=== PATIENT | female | born 1995 | race Caucasian/White ===

== ENCOUNTER 2017-01-03 15:23 | Inpatient (IN) | payer BC, OTHER ==
[~2017-01-03] VITALS: Ht 157.5 cm; Wt 67.6 kg
[~2017-01-03 15:23] MED LIST: ACYC400T PO; ARIP15TA3 PO; BUPR-96 PO; DICY20TA28 PO; Gabapentin PO; HYDR-3895 PO; TRAZ-147 PO
--- NOTE | 2017-01-03 17:22 | NUR ---
PRE ADMISSION 21 year old female, alert and oriented x4, appears intoxicated. Patient reports she is here to detox off of heroin, Xanax, methamphetamine, and cocaine, as per patient she relapsed two weeks ago. Reports allergies to sulfa. bp: 124/90 heart rate: 96 t: 98.2 o2 sat: 98% room air. Patient was educated regarding unit policies with good verbal understanding.
--- NOTE | 2017-01-03 17:32 | NUR ---
ADMISSION Admitted a 21 year old female from [facility], patient arrived to [facility] at 1732, patient was oriented to unit and to room, educated regarding call light use with good verbal understanding. Body assessment was completed, noted with multiple scars on body and track graves on BUE. Patient skin is intact, no bruising, redness or discoloration noted on skin. Patients body search completed by female CLOTH PRINTING INSPECTOR, no contraband found. Patient is alert and oriented x4. Allergies to sulfa. Patient reports she does not have a primary care physician, reports currently is homeless and unemployed. As per patient she has been to approximately 15 treatment centers, cannot recall all the names, per patient most recently was at [facility] "a few weeks ago" Since then reports she relapsed two weeks ago. Reports 1. heroin 0.5 gram IV daily for two weeks, last used 0.2gram IV 01/03/2017 approximately 1300, reports has been using on/off since age of 16. 2. Xanax 6mg daily by mouth for two weeks, last used 4mg PO 01/03/2017 approximately 1330, reports has been using on/off since age of 16. 3. methamphetamine 0.5 grams daily IV for two weeks, last used unk amount 01/03/2017 approximately 1400, reports has been using since age of 20. 4. cocaine 0.5 grams daily snorted for two weeks, last used unknown amount 01/02/2017 approximately at 2300, reports has been using on/off since age of 15. Patient currently denies taking any home medications. Reports past medical history of: hep c+, scoliosis surgery in 2006, anxiety and depression Dx: 2010 and herpes Dx: 2013. Patient reports has had one episode of seizure a "couple of years ago" due to benzodiazepine withdrawal. patient reports family substance abuse of: "father is an alcoholic" Patients respirations are even and unlabored, pupils are equal and reactive to light, 2mm. Abdomen is soft and non distended. no NVD. Patient presenting with: mild anxiety and heart rate of 96 with admitting cow score of: 2 and ciwa score of: 2. Dr. Carrasquillo was notified of new admission, per Md will input admitting orders, psychiatrist was notified of new admission. Will continue to monitor closely. Admission urine drug screen completed. fall and seizure precautions observed. safety measures in place.
[2017-01-03 17:57] LABS: *URINE HCG, QUAL NEGATIVE (NEGATIVE)
[2017-01-03 17:58] LABS: *AMPHETAMINE, URINE POSITIVE (NEGATIVE); *BARBITURATE, URINE NEGATIVE (NEGATIVE); *CANNABINOID, URINE NEGATIVE (NEGATIVE); *COCCAINE, URINE POSITIVE (NEGATIVE); *OPIATE, URINE POSITIVE (NEGATIVE); *PHENCYCLIDINE SCREEN,URINE NEGATIVE (NEGATIVE)
[2017-01-03] MEDS ORDERED: MAGNESIUM HYDROXIDE 30 ML LIQUID UDC PO PRN (18:00)
[2017-01-03] MEDS ORDERED: ONDANSETRON ODT 4 MG TAB.RAPDIS SL PRN (18:00)
[2017-01-03] MEDS ORDERED: LORAZEPAM 1 MG TABLET PO PRN ×2 (18:00)
[2017-01-03] MEDS ORDERED: MAG HYDROX/AL HYDROX/SIMETH 30 ML LIQUID UDC PO PRN (18:00)
[2017-01-03] MEDS ORDERED: ONDANSETRON 4 MG/2 ML VIAL IM PRN (18:00)
[2017-01-03] MEDS ORDERED: IBUPROFEN 600 MG TABLET PO PRN (18:00)
[2017-01-03] MEDS ORDERED: ACETAMINOPHEN 325 MG TABLET PO PRN (18:00)
[2017-01-03] MEDS ORDERED: diphenhydrAMINE 50 MG CAPSULE PO PRN (18:00)
[2017-01-03] MEDS ORDERED: METHOCARBAMOL 750 MG TABLET PO PRN (18:00)
[2017-01-03] MEDS ORDERED: LOPERAMIDE HCL 2 MG CAPSULE PO PRN ×2 (18:00)
[2017-01-03] MEDS ORDERED: CLONIDINE HCL 0.1 MG TABLET PO PRN (18:00)
[2017-01-03] MEDS ORDERED: LORAZEPAM 2 MG/1 ML VIAL IM PRN (18:00)
[2017-01-03] MEDS ORDERED: MIRALAX 17 GM POWD.PACK PO PRN (18:00)
[2017-01-03] MEDS ORDERED: BUPRENORPHINE HCL 2 MG TAB.SUBL SL PRN (18:00)
[2017-01-03] MEDS ORDERED: DICYCLOMINE HCL 20 MG TABLET PO PRN (18:00)
[2017-01-03 18:27] VITALS: BP 124/90
[2017-01-03 19:26] LABS: BASOPHILS # (AUTO) 0.1 K/uL (0.0-8.0); BASOPHILS % (AUTO) 0.8 % (0.0-2.0); EOSINOPHILS # (AUTO) 0.2 K/uL (0.0-0.7); EOSINOPHILS % (AUTO) 2.3 % (0.0-7.0); HEMATOCRIT 37.3 % (37-47); HEMOGLOBIN 12.5 G/DL (12.0-16.0); LYMPHOCYTES # (AUTO) 3.4 K/UL (0.8-4.8); LYMPHOCYTES % (AUTO) 39.2 % (20.5-51.5); MEAN CORPUSCULAR HEMOGLOBIN 27.9 UUG (27.0-31.0); MEAN CORPUSCULAR HGB CONC 34 g/dL (32.0-37.0); MEAN CORPUSCULAR VOLUME 83.3 FL (81.0-99.0); MONOCYTES % (AUTO) 11.6 % (0.0-11.0); NEUTROPHILS # (AUTO) 4.1 K/UL (1.8-8.9); NEUTROPHILS % (AUTO) 46.1 % (38.5-71.5); PLATELET COUNT (AUTO) 241 K/UL (150-450); RED BLOOD CELL COUNT(AUTO) 4.48 MIL/UL (4.2-5.4); WHITE BLOOD COUNT (AUTO) 8.8 K/UL (4.0-11.2)
[2017-01-03 19:34] LABS: ETHANOL < 3 MG/DL (0-0)
[2017-01-03 19:38] LABS: ALANINE AMINOTRANSFERASE 95 U/L (14-59); ALKALINE PHOSPHATASE 53 U/L (50-136); ASPARTATE AMINOTRANSFERASE 63 U/L (15-37); BILIRUBIN,TOTAL 0.9 mg/dL (0.2-1.0); CARBON DIOXIDE 24 mmol/L (21-32); CHLORIDE 99 mmol/L (98-107); GLUCOSE 111 mg/dL (74-106); POTASSIUM 2.9 mmol/L (3.5-5.1); TOTAL PROTEIN, SERUM 7.5 g/dL (6.4-8.2); UREA NITROGEN, BLOOD 12 mg/dL (7-18)
[2017-01-03 20:00] VITALS: BP 127/92
--- NOTE | 2017-01-03 20:00 | NUR ---
START OF SHIFT NOTE E PATIENT IN THE ROOM. ALERT AND ORIENTED X 4. PATIENT STATES SHE'S TIRED AND C/O HEADACHE 10/20. NO N/V. RECEIVED REPORT FROM DAY SHIFT NURSE. PATIENT IS A 21 YEAR OLD FEMALE, NEWLY ADMITTED FOR OPIATE/BENZO DEPENDENCE. PATIENT IS ON PRN SUBUTEX AND PRN ATIVAN. UPON ADMISSION, PATIENT STATES SHE'S BEEN USING FOR 2 WEEKS. PATIENT'S DRUG OF CHOICE ARE HEROIN 0.5 GRAMS IV ,XANAX 6 MG ORALLY, METHAMPHETAMINE 0.5 GRAM IV AND COCAINE 0.5 GRAM SNORTED/IV. PATIENT REPORTED PMH OF HEP C +, ANXIETY, DEPRESSION, ANEMIA, HERPES AND SEIZURE X 1 D/T W/D. PATIENT IS ON FALL /SEIZURE PRECAUTION. SKIN INTACT. PATIENT DID NOT REQUIRE ANY PRN MEDICATION . LAST COWS 2 AND CIWA 1. SAFETY MEASURES IN PLACE. CALL LIGHT IN REACH. WILL CONTINUE TO MONITOR.
[2017-01-03] MEDS ORDERED: POTASSIUM CHLORIDE 20 MEQ TAB.PRT.SR PO ONE (20:15)
[2017-01-03] MEDS: GABAPENTIN 300 MG CAPSULE PO SCH (20:31)
[2017-01-03] MEDS: ACYCLOVIR 400 MG TABLET PO SCH (20:31)
--- NOTE | 2017-01-03 20:31 | NUR ---
PRN MOTRIN ADMINISTRATION PATIENT C/O HEADACHE 10/20. PRN MOTRIN GIVEN. WILL MONITOR FOR EFFECTIVENESS
--- NOTE | 2017-01-03 21:31 | NUR ---
PRN MOTRIN RE-ASSESSMENT PATIENT STATES MOTRIN HELPFUL. PAIN LEVEL 2/10 AT THIS TIME, TOLERABLE. WILL CONTINUE TO MONITOR.
[2017-01-04] VITALS: BP 119/86
[2017-01-04 04:00] VITALS: BP 119/84
--- NOTE | 2017-01-04 07:11 | NUR ---
END OF SHIFT NOTE PATIENT REMAIN ALERT AND ORIENTED X 4. PATIENT STATES SHE'S TIRED AND C/O HEADACHE 10/20, NO N/V BEGINNING OF SHIFT. PATIENT IS A 21 YEAR OLD FEMALE, NEWLY ADMITTED FOR OPIATE/BENZO DEPENDENCE. PATIENT IS ON PRN SUBUTEX AND PRN ATIVAN. UPON ADMISSION, PATIENT STATES SHE'S BEEN USING FOR 2 WEEKS. PATIENT'S DRUG OF CHOICE ARE HEROIN 0.5 GRAMS IV ,XANAX 6 MG ORALLY, METHAMPHETAMINE 0.5 GRAM IV AND COCAINE 0.5 GRAM SNORTED/IV. PATIENT REPORTED PMH OF HEP C +, ANXIETY, DEPRESSION, ANEMIA, HERPES AND SEIZURE X 1 D/T W/D. PATIENT IS ON FALL /SEIZURE PRECAUTION. SKIN INTACT.PATIENT WAS GIVEN PRN MOTRIN FOR HEADACHE . PATIENT COMPLIANT WITH MEDICATIONS AND TREATMENT PLAN. SAFETY MEASURES IN PLACE. CALL LIGHT IN REACH. WILL CONTINUE TO MONITOR. SLEPT 5 HOURS. FLUID INTAKE 1,656 ML. VOIDED X 3. NO BM . LAST COWS 1 AND CIWA 1 .
--- NOTE | 2017-01-04 07:32 | NUR ---
BEGINNING OF SHIFT Patient endorsement report received from shift mgr nurse, all pertinent information discussed. Patient is 21 year old Female, allergic to sulfa. Admitted on 01/03/2017. Admitting Dx: opiate/ BZO dependence. currently with no ongoing taper and is currently with ongoing PRN ativan and PRN subutex as needed for s/sx of withdrawal. Patient slept for 5 hours as per shift mgr. Also with last cow score of: 1 and ciwa score of: 1. During shift mgr patient received PRN: motrin as per shift mgr medication was effective. Received patient in bed with eyes closed, respirations even and unlabored. responsive to verbal stimuli. Educated regarding plan of care for the day and medication regimen with good verbal understanding. Safety measures in place. call light kept with in reach, fall and seizure precautions observed. Will continue to monitor closely.
[2017-01-04 08:07] VITALS: BP 116/80
[2017-01-04] MEDS ORDERED: TUBERCULIN,PURIF.PROT.DERIV. 5 TU/0.1 ML TEST ID ONE (09:00)
[2017-01-04] MEDS: MULTIVITAMINS,THERAPEUTIC TABLET PO SCH (09:03)
[2017-01-04] MEDS: ACYCLOVIR 400 MG TABLET PO SCH ×2 (09:03→21:46)
[2017-01-04] MEDS: GABAPENTIN 300 MG CAPSULE PO SCH ×3 (09:03→21:46)
--- NOTE | 2017-01-04 09:03 | NUR ---
PRN ATIVAN Patient presenting with: tremors that can be felt but not seen, barely sweating, anxiety, mild head fullness, c/o chills, mild bone and joint aches, and moist eyes with cow score of: 6 and ciwa score of: 7. As per MD order Ativan 1 mg PO was administered as ordered, will monitor effectiveness of medication. vital signs WNL. safety measures in place. will continue to monitor.
--- NOTE | 2017-01-04 10:00 | NUR ---
MD COMMUNICATION Patients BLE noted with non pitting edema 1+. Notified Dr. Carrasquillo with no new orders, will continue to monitor closely. patient encouraged to keep BLE elevated with good verbal understanding, per patient this occurs to her during detox. vs WNL. afebrile, no c/o pain/discomfort to BLE. Patient reported that she thinks she might have a UTI, Dr. Carrasquillo is aware with new orders for UA, will collect specimen and continue to monitor, patient encouraged to increase PO fluid intake as tolerated, no hematuria noted. will continue to monitor.
--- NOTE | 2017-01-04 10:03 | NUR ---
PRN ASSESSMENT Medication was effective one hour post adminstration: ciwa score decreased to: 5, will continue to monitor, closely. safety measures in place.
[2017-01-04 13:08] VITALS: BP 119/80
[2017-01-04] MEDS: LORAZEPAM 1 MG TABLET PO SCH ×3 (13:28→21:46)
[2017-01-04] MEDS: BUPRENORPHINE HCL 2 MG TAB.SUBL SL SCH ×3 (13:28→21:47)
[2017-01-04 14:41] LABS: *BILIRUBIN,URIN NEGATIVE (NEGATIVE); *BLOOD, URINE Trace-intact (NEGATIVE); *CLARITY,URINE CLOUDY (CLEAR); *COLOR,URINE YELLOW (YELLOW); *KETONES,URINE NEGATIVE (NEGATIVE); *PROTEIN,URINE NEGATIVE (NEGATIVE); *UROBILINOGEN,URINE 0.2 E.U./dl (NORMAL); LEUKOCYTE ESTERASE ,URINE 3+ (NEGATIVE); NITRITE, URINE POSITIVE (NEGATIVE); PH,URINE 6.5 (5.0-8.0); UGLUCOSE NEGATIVE (NEGATIVE)
[2017-01-04 15:07] LABS: BACTERIA,URINE MANY /HPF (NONE SEEN); SQUAMOUS EPITHELIAL CELL,UR MODERATE /HPF (NONE SEEN); WBC,URINE 20-50 /HPF (0-3)
[2017-01-04 16:41] VITALS: BP 112/78
[2017-01-04] MEDS: NITROFURANTOIN/NITROFURAN MAC 100 MG CAPSULE PO SCH ×2 (16:41→21:46)
[2017-01-04] MEDS: LACTOBACILLUS RHAMNOSUS GG 1 EACH CAPSULE PO SCH ×2 (16:41→21:46)
[2017-01-04] MEDS ORDERED: TRAZODONE 100 MG TABLET PO PRN (16:45)
[2017-01-04] MEDS ORDERED: HYDROXYZINE PAMOATE 25 MG CAPSULE PO PRN (16:45)
--- NOTE | 2017-01-04 19:06 | NUR ---
END OF SHIFT Patient alert and oriented x4, vital signs stable during shift. Patient compliant with therapeutic plan of care during shift. Patient started on 5 day Subutex taper and started 5 day Ativan taper as ordered, first dose was administered at 1300 as ordered well tolerated, no ASE noted. during shift patient was started on Macrobid as ordered for UTI, medications was administered ordered, well tolerated, no ASE noted. patient encouraged adequate PO fluid intake as tolerated, Afebrile during shift. 0900 assessment patient presented with: tremors that can be felt but not seen, barely sweating, anxiety, mild heeafullness, c/o chills, mild bone and joint aches, and moist eyes with ciwa score of: 7 and cow score of: 6; 1300 assessment patient presented with: heart rate of 107, c/o chills, mild bone and joint aches, moist eyes, tremors that can be felt but not seen, irritable, and anxiety and very mild head fullness with cow score of: 8 and ciwa score of: 7; 1700 assessment patient presented with: heart rate of 95,c/o chills, mild bone and joint aches, moist eyes, tremors that can be felt but not seen, irritable, and anxiety and very mild head fullness with cow score of: 7 and ciwa score of: 7 During shift administered PRN: Ativan as ordered at 0903 for s/sx of withdrawal, mediation was effective one hour post administration. Patient encouraged to attend group/therapy sessions to learn new coping skills to prevent relapse, denies SI/HI. Patient compliant with plan of care during shift. Safety measures in place. call light kept with in reach. Patient endorsement report given to material handler 2nd shift nurse, all pertinent information discussed. safety measures in place. will continue to monitor.
--- NOTE | 2017-01-04 19:07 | NUR ---
Start of shift note Received report from day shift nurse. Pt is a 21 yo female, A+Ox4, presenting to [facility] for Opiate/Benzo/Meth dependence. Pt has Allergies tyo Sulfa, is on Full Code status, and on Regular diet. Pt is on Fall and Seizure precautions. Pt has HX of Hep C, Anxiety, Depression, Anemia, Seizure, and UTI. Pt is on 5 day Ativan and 5 day Subutex taper, tolerated well. No s/s of distress noted at this time. Respirations even and unlabored. Will continue to monitor.
[2017-01-04 20:06] VITALS: BP 127/86
[2017-01-05 00:16] VITALS: BP 109/72
[2017-01-05 04:30] VITALS: BP 110/74
[2017-01-05 06:08] LABS: HEPATITIS B SURFACE AG Negative (Negative)
--- NOTE | 2017-01-05 07:00 | NUR ---
End of shift note Pt is a 21 yo female, A+Ox4, presenting to [facility] for Opiate/Benzo/Meth dependence. Pt has Allergies to Sulfa, is on Full Code status, and on Regular diet. Pt is on Fall and Seizure precautions. Pt has HX of Hep C, Anxiety, Depression, Anemia, Seizure, and UTI. Pt is on 5 day Ativan and 5 day Subutex taper, tolerated well. Pt slept for a total of 9 HRS. Last CIWA: 2 and Last COWS: 2 @0400. No s/s of distress noted at this time. Respirations even and unlabored. Will endorse to day shift nurse.
--- NOTE | 2017-01-05 07:58 | NUR ---
START OF SHIFT NOTE Received report from night nurse, 21 year old Female, allergic to sulfa. Pt admitted for Opiate/ BENZO dependence. Pt cont with 5 days Ativan taper and 5 days Subutex taper tolerating well. Per endorsement pt's last CIWA-2, COWS-2, no PRN were administered, Slept for 9 hours. Received patient in bed alert awake oriented x4, respirations even and unlabored. responsive to verbal stimuli. Educated regarding plan of care for the day and medication regimen with good verbal understanding. Safety measures in place. call light kept with in reach,On fall and seizure precautions. Will cont to monitor.
[2017-01-05 08:00] VITALS: BP 116/84
[2017-01-05] MEDS: LORAZEPAM 1 MG TABLET PO SCH ×3 (08:19→20:26)
[2017-01-05] MEDS: GABAPENTIN 300 MG CAPSULE PO SCH ×4 (08:19→20:28)
[2017-01-05] MEDS: LACTOBACILLUS RHAMNOSUS GG 1 EACH CAPSULE PO SCH ×2 (08:19→20:28)
[2017-01-05] MEDS: MULTIVITAMINS,THERAPEUTIC TABLET PO SCH (08:19)
[2017-01-05] MEDS: BUPRENORPHINE HCL 2 MG TAB.SUBL SL SCH ×3 (08:19→20:30)
[2017-01-05] MEDS: ACYCLOVIR 400 MG TABLET PO SCH ×2 (08:19→20:26)
[2017-01-05] MEDS: NITROFURANTOIN/NITROFURAN MAC 100 MG CAPSULE PO SCH ×2 (08:19→20:28)
[2017-01-05 12:00] VITALS: BP 121/78
[2017-01-05 13:17] LABS: CREATININE 0.8 mg/dL (0.6-1.3); MAGNESIUM 1.6 mg/dL (1.8-2.4); POTASSIUM 3.7 mmol/L (3.5-5.1)
[2017-01-05] MEDS: BACLOFEN 10 MG TABLET PO SCH ×2 (15:09→20:26)
[2017-01-05 16:00] VITALS: BP 113/73
[2017-01-05] MEDS ORDERED: MAGNESIUM OXIDE 400 MG TABLET PO ONE (17:00)
--- NOTE | 2017-01-05 19:11 | NUR ---
END OF SHIFT NOTE Gave report to night nurse, 21 year old Female, allergic to sulfa. Pt admitted for Opiate/ BENZO dependence. Pt cont with 5 days Ativan taper and 5 days Subutex taper tolerating well. Pt cont with Po antibiotic for UTI no s/s of ASE noted. Pt did not receive any PRN during shift. Pt noted with low magnesium level replaced with Mag-OX 800 mg as ordered. Encourage Po fluids as ordered. Patient encouraged to attend group/therapy sessions to learn new coping skills to prevent relapse, denies SI/HI. Patient compliant with plan of care during shift. Safety measures in place. call light kept with in reach. Patient endorsement report given to warp knit operator nurse. Will cont to monitor.
[2017-01-05 20:00] VITALS: BP 128/84
--- NOTE | 2017-01-05 20:00 | NUR ---
START OF SHIFT NOTE Pt is a 21 y/o female admitted for Heroin, Xanax, Meth, and Cocaine dependence and use. Pt has an allergy to Sulfa and reported a PMH of Hep C, anxiety, depression, anemia, herpes, and seizure x 1 d/t w/d. Per day shift nurse pt was placed on a 5 day Subutex taper and is tolerating medication well with no s/e or a/r reported. Pt didn't receive any PRNS during the day shift. Last COW: 4 CIWA: 4 (1600). At this time pt is in her room. Pt's skin is dry and intact. No tremors noted. Pt denies having any pain/discomfort. Pt was encouraged to notify staff of any changes in condition or of any concerns. Pt verbalized an understanding. All safety measures in place. Will continue to monitor.
--- NOTE | 2017-01-06 | NUR ---
VITALS REFUSED/COW AND CIWA DEFERRED Pt refused to have vitals taken at this time. Pt was encouraged x 3 with risks and benefits explained, but the pt still declined. COW and CIWA assessment deferred until pt is awake. All safety measures in place. Will continue to monitor. Addendum: 01/06/17 at 0628 by TOMAS BEYER LVN Amended: Links added.
--- NOTE | 2017-01-06 04:00 | NUR ---
VITALS REFUSED / COW AND CIWA DEFERRED Pt refused to have vitals taken at this time. Pt was encouraged x 3 with risks and benefits explained, but the pt still declined. COW and CIWA assessment deferred until pt is awake. All safety measures in place. Will continue to monitor. Addendum: 01/06/17 at 0628 by TOMAS BEYER LVN Amended: Links added.
--- NOTE | 2017-01-06 06:48 | NUR ---
END OF SHIFT NOTE Pt is a 21 y/o female admitted for Heroin, Xanax, Meth, and Cocaine dependence and use. Pt has an allergy to Sulfa and reported a PMH of Hep C, anxiety, depression, anemia, herpes, and seizure x 1 d/t w/d. Pt continues on a 5 day Subutex taper and is tolerating medication well with no s/e or a/r reported. Pt didn't receive any PRNS during the shift. Last COW: 2 CIWA: 0 (1999). Pt slept for a total of 8 hours. All safety measures in place. No new changes. Will endorse to the oncoming nurse.
--- NOTE | 2017-01-06 07:00 | NUR ---
Start of Shift Report from the night nurse: pt is 21 y/o female here for Opiates r/t Heroin 0.5g daily, Benzo r/t Xanax 6mg daily, methamphetamine 0.5g daily and Cocaine 0.5g daily; 5 day Subutex and 5 day Ativan tapers ordered. Pt is a full code, regular diet, allergic to Sulfa, fall and seizure precautions ordered. New Dx of UTi with 2 PO Atbx ordered. HHx: Hep C+, Anxiety, depression, anemia , HSV and seizure r/t w/d, relapse at 15 different tx centers. V/S stable. Skin is intact. No new abnormal labs endorsed to me. No PRN medications given last night. Last COWS 2 CIWA 0 Pt is asleep in room. Will cont. to monitor the pt.
[2017-01-06 08:00] VITALS: BP 127/80
[2017-01-06] MEDS ORDERED: BUPRENORPHINE HCL 2 MG TAB.SUBL SL SCH (09:00)
[2017-01-06] MEDS: ACYCLOVIR 400 MG TABLET PO SCH ×2 (10:33→20:56)
[2017-01-06] MEDS: LORAZEPAM 1 MG TABLET PO SCH ×4 (10:33→20:51)
[2017-01-06] MEDS: GABAPENTIN 300 MG CAPSULE PO SCH ×3 (10:33→20:52)
[2017-01-06] MEDS: BACLOFEN 10 MG TABLET PO SCH ×3 (10:33→20:52)
[2017-01-06] MEDS: MULTIVITAMINS,THERAPEUTIC TABLET PO SCH (10:33)
[2017-01-06] MEDS: NITROFURANTOIN/NITROFURAN MAC 100 MG CAPSULE PO SCH ×2 (10:33→20:52)
[2017-01-06] MEDS: LACTOBACILLUS RHAMNOSUS GG 1 EACH CAPSULE PO SCH ×2 (10:34→20:53)
[2017-01-06 12:00] VITALS: BP 106/75
--- NOTE | 2017-01-06 14:50 | NUR ---
Medication Non-Administration Ativan Pt is asleep in room since 1245pm after lunch so I HELD Ativan 1mg PO due at 1300H. Will cont. to monitor the pt.
[2017-01-06 16:00] VITALS: BP 133/92
[2017-01-06] MEDS: BUPRENORPHINE HCL 2 MG TAB.SUBL SL SCH ×2 (16:25→20:54)
--- NOTE | 2017-01-06 19:35 | NUR ---
End of Shift Report to the night nurse: pt is 21 y/o female here for Opiates r/t Heroin 0.5g daily, Benzo r/t Xanax 6mg daily, methamphetamine 0.5g daily and Cocaine 0.5g daily; 5 day Subutex and 5 day Ativan tapers ordered & pt missed the 1300H dose ordered since she was asleep. Pt is a full code, regular diet, allergic to Sulfa, fall and seizure precautions ordered. New Dx of UTi with 2 PO Atbx ordered. HHx: Hep C+, Anxiety, depression, anemia , HSV and seizure r/t w/d, relapse at 15 different tx centers. V/S stable. Skin is intact. No Hallucinations delusions or suicidal ideations noted. No new abnormal labs endorsed to me. No PRN medications given during my shift. Pt attended group therapy and activities. Last COWS 1 CIWA 2
--- NOTE | 2017-01-06 19:50 | NUR ---
START OF SHIFT NOTE Pt is a 21 y/o female admitted for Heroin, Xanax, Meth, and Cocaine dependence and use. Pt has an allergy to Sulfa and reported a PMH of Hep C, anxiety, depression, anemia, herpes, and seizure x 1 d/t w/d. Per day shift nurse pt continues on a 5 day Subutex taper and is tolerating medication well with no s/e or a/r reported. Pt didn't receive any PRNS during the day shift. Last COW: 1 CIWA: 2(1600). At this time pt is in her room. Pt's skin is dry and intact. No tremors noted. Pt denies having any pain/discomfort. Pt was encouraged to notify staff of any changes in condition or of any concerns. Pt verbalized an understanding. All safety measures in place. Will continue to monitor.
[2017-01-06 20:00] VITALS: BP 125/88
[2017-01-06] MEDS: DICYCLOMINE HCL 20 MG TABLET PO SCH (20:51)
--- NOTE | 2017-01-07 | NUR ---
VITALS REFUSED / COW AND CIWA DEFERRED Pt refused to have vitals taken at this time. Pt was encouraged x 3 with risks and benefits explained, but the pt still declined. COW and CIWA assessment deferred until pt is awake. All safety measures in place. Will continue to monitor. Addendum: 01/07/17 at 0053 by TOMAS BEYER LVN Amended: Links added.
--- NOTE | 2017-01-07 04:00 | NUR ---
VITALS REFUSED/ COW AND CIWA DEFERRED Pt refused to have vitals taken at this time. Pt was encouraged x 3 with risks and benefits explained, but the pt still declined. COW and CIWA assessment deferred until pt is awake. All safety measures in place. Will continue to monitor. Addendum: 01/07/17 at 0417 by TOMAS BEYER LVN Amended: Links added.
--- NOTE | 2017-01-07 07:07 | NUR ---
END OF SHIFT NOTE Pt is a 21 y/o female admitted for Heroin, Xanax, Meth, and Cocaine dependence and use. Pt has an allergy to Sulfa and reported a PMH of Hep C, anxiety, depression, anemia, herpes, and seizure x 1 d/t w/d. Pt continues on a 5 day Subutex taper and is tolerating medication well with no s/e or a/r reported. Pt didn't receive any PRNS during the shift. Last COW: 1 CIWA: 2 (1999). Pt slept for a total of 7 hours. All safety measures in place. No new changes. Will endorse to the oncoming nurse.
--- NOTE | 2017-01-07 07:30 | NUR ---
START OF SHIFT Pt 21 y/o female admitted for opiate/ bzo dependence. Pt received in room on bed with eyes closed resting, but easily arousable to name. Pt alert and oriented to name, place, and time. Perrla. Skin warm and dry to touch. Respirations even and unlabored. It was reported that pt slept for 7 hours last night. Bed on lowest position with side rails x2 up for safety. Call light within reach. No distress noted at this time.
[2017-01-07 08:47] VITALS: BP 109/85
[2017-01-07] MEDS: GABAPENTIN 300 MG CAPSULE PO SCH ×3 (09:36→22:06)
[2017-01-07] MEDS: MULTIVITAMINS,THERAPEUTIC TABLET PO SCH (09:36)
[2017-01-07] MEDS: BACLOFEN 10 MG TABLET PO SCH ×3 (09:36→22:04)
[2017-01-07] MEDS: BUPRENORPHINE HCL 2 MG TAB.SUBL SL SCH ×3 (09:36→22:06)
[2017-01-07] MEDS: ACYCLOVIR 400 MG TABLET PO SCH ×2 (09:36→22:05)
[2017-01-07] MEDS: DICYCLOMINE HCL 20 MG TABLET PO SCH ×3 (09:36→22:05)
[2017-01-07] MEDS: NITROFURANTOIN/NITROFURAN MAC 100 MG CAPSULE PO SCH ×2 (09:36→22:05)
[2017-01-07] MEDS: LORAZEPAM 1 MG TABLET PO SCH ×3 (09:36→22:00)
--- NOTE | 2017-01-07 09:50 | NUR ---
CULTURRELLE Culturrelle not available. Pharmacy made aware and awaiting for medication.
[2017-01-07] MEDS: LACTOBACILLUS RHAMNOSUS GG 1 EACH CAPSULE PO SCH ×2 (11:19→22:05)
[2017-01-07 13:00] VITALS: BP 129/86
[2017-01-07] MEDS ORDERED: CLONIDINE HCL 0.1 MG TABLET PO ONE (15:00)
[2017-01-07 17:38] VITALS: BP 102/62
--- NOTE | 2017-01-07 18:25 | NUR ---
END OF SHIFT Pt 21 y/o female admitted for opiate/ bzo dependence. Pt alert and orient to name, place, and time. Pt alert and oriented to name, place, and time. Perrla. Skin warm and slightly moist to touch. Respirations even and unlabored. Pt observed mostly in dining room throughout the day. Pt medication compliant and tolerated well. No ASE noted. Bed on lowest position with side rails x2 up for safety. Call light within reach. No distress noted a this time.
--- NOTE | 2017-01-07 19:15 | NUR ---
START OF SHIFT NOTE Pt is 21 y/o female here for Opiates, Benzo , methamphetamine , , Cocaine , pt. placed on 5 day Subutex and 5 day Ativan tapers on 01/04/2017. Pt is a full code, regular diet, allergic to Sulfa, fall and seizure precautions ordered. New Dx of UTi with 2 PO Atbx ordered. HHx: Hep C+, Anxiety, depression, anemia , HSV and seizure r/t w/d, relapse at 15 different tx centers. V/S stable. Skin is intact. No new abnormal labs endorsed to me. Pt is asleep in room. Safety measures in place : bed on lowest position with side rails x2 up for safety, call light within reach. Will continue to monitor closely and offer help.
[2017-01-07 20:00] VITALS: BP 122/80
[2017-01-07] MEDS: CLONIDINE HCL 0.1 MG TABLET PO SCH (22:05)
--- NOTE | 2017-01-08 06:39 | NUR ---
END OF SHIFT NOTE Pt is 21 y/o female here for Opiates, Benzo , methamphetamine , , Cocaine , pt. placed on 5 day Subutex and 5 day Ativan tapers on 01/04/2017. Pt is a full code, regular diet, allergic to Sulfa, fall and seizure precautions ordered. New Dx of UTi with 2 PO Atbx ordered. HHx: Hep C+, Anxiety, depression, anemia , HSV and seizure r/t w/d, relapse at 15 different tx centers. V/S stable. Skin is intact. No new abnormal labs endorsed to me. Pt is asleep in room. Pt remains compliant with the treatment plan. No PRNs were given during my shift. V/S remain WNL. RR=16, even and unlabored, lungs clear upon auscultation, abdomen soft and non- distended. Pt denies nausea, vomiting and diarrhea. LAST CIWA=2 ,COWS=2 at 0400 , INTAKE= 2210 ml, voided x3 , slept 8 [address] measures in place : bed on lowest position with side rails x2 up for safety, call light within reach. Will continue to monitor closely and offer help.
--- NOTE | 2017-01-08 07:30 | NUR ---
START OF SHIFT Pt 21 y/o female admitted for opiate/ bzo dependence. Pt received in room on bed with eyes closed resting, but easily arousable to name. Pt alert and oriented to name, place, and time. Perrla. Skin warm and dry to touch. Respirations even and unlabored. Bilateral hand tremors noted slightly. It was reported that pt slept for 8 hours last night. Bed on lowest position with side rails x2 up for safety. Call light within reach. No distress noted at this time.
[2017-01-08 08:00] VITALS: BP 123/65
[2017-01-08] MEDS: NITROFURANTOIN/NITROFURAN MAC 100 MG CAPSULE PO SCH ×2 (08:27→21:48)
[2017-01-08] MEDS: GABAPENTIN 300 MG CAPSULE PO SCH ×3 (08:27→21:48)
[2017-01-08] MEDS: DICYCLOMINE HCL 20 MG TABLET PO SCH ×3 (08:27→21:47)
[2017-01-08] MEDS: LACTOBACILLUS RHAMNOSUS GG 1 EACH CAPSULE PO SCH ×2 (08:27→21:48)
[2017-01-08] MEDS: BACLOFEN 10 MG TABLET PO SCH ×3 (08:27→21:48)
[2017-01-08] MEDS: MULTIVITAMINS,THERAPEUTIC TABLET PO SCH (08:27)
[2017-01-08] MEDS: LORAZEPAM 1 MG TABLET PO SCH ×2 (08:27→21:48)
[2017-01-08] MEDS: BUPRENORPHINE HCL 2 MG TAB.SUBL SL SCH ×2 (08:28→21:48)
[2017-01-08] MEDS: ACYCLOVIR 400 MG TABLET PO SCH ×2 (08:32→21:47)
[2017-01-08] MEDS: CLONIDINE HCL 0.1 MG TABLET PO SCH ×2 (10:00→21:48)
[2017-01-08 13:59] VITALS: BP 118/73
[2017-01-08 16:00] VITALS: BP 117/77
[2017-01-08] MEDS ORDERED: GABA-534 PO ×2 (17:06)
[2017-01-08] MEDS ORDERED: IBUP-1955 PO (17:06)
[2017-01-08] MEDS ORDERED: DICY20TA28 PO (17:06)
[2017-01-08] MEDS ORDERED: TRAZ-147 PO (17:06)
[2017-01-08] MEDS ORDERED: BACL10TA PO (17:06)
[2017-01-08] MEDS ORDERED: CLON0.1T14 PO (17:06)
[2017-01-08] MEDS ORDERED: HYDR-3895 PO (17:06)
--- NOTE | 2017-01-08 19:15 | NUR ---
START OF SHIFT NOTE : Pt is 21 y/o female here for Opiates, Benzo , methamphetamine , , Cocaine , pt. placed on 5 day Subutex and 5 day Ativan tapers on 01/04/2017. Pt is a full code, regular diet, allergic to Sulfa, fall and seizure precautions ordered. New Dx of UTi with 2 PO Atbx ordered. HHx: Hep C+, Anxiety, depression, anemia , HSV and seizure r/t w/d, relapse at 15 different tx centers. V/S stable. Skin is intact. No new abnormal labs endorsed to me. Pt is smoking at the patio at this time. Safety measures in place : bed on lowest position with side rails x2 up for safety, call light within reach. Will continue to monitor closely and offer help.
[2017-01-08 20:00] VITALS: BP 125/80
--- NOTE | 2017-01-09 06:49 | NUR ---
END OF SHIFT NOTE : Pt is 21 y/o female here for Opiates, Benzo , methamphetamine , , Cocaine , pt. placed on 5 day Subutex and 5 day Ativan tapers on 01/04/2017. Pt is a full code, regular diet, allergic to Sulfa, fall and seizure precautions ordered. New Dx of UTi with 2 PO Atbx ordered. HHx: Hep C+, Anxiety, depression, anemia , HSV and seizure r/t w/d, relapse at 15 different tx centers. V/S stable. Skin is intact. No new abnormal labs endorsed to me. [facility] at this time. Pt remains compliant with the treatment plan. No PRNs were given during my shift. V/S remain WNL. RR=16, even and unlabored, lungs clear upon auscultation, abdomen soft and non- distended. Pt denies nausea, vomiting and diarrhea. LAST CIWA=2 ,COWS= 2 at 0400 , [id number] ml, voided x 4, slept 5 hours. Safety measures in place : bed on lowest position with side rails x2 up for safety, call light within reach. Will continue to monitor closely and offer help.
--- NOTE | 2017-01-09 07:24 | NUR ---
Start of shift note; Received report from night nurse. Patient is a 21 year old female admitted on 01/03/17 for Opiate and Benzo dependence/withdrawals. Patient was placed on a 5 day Subutex and 5 day Ativan taper, no adverse reactions noted. Patient noted to be allergic to Sulfa, on full code, regular diet. Patient reported history of anxiety, Hep C, depression, anemia and herpes, seizure history d/t withdrawals. Patient is currently resting with eyes closed, respirations even and unlabored. All safety measures secured. Will continue to monitor patient.
[2017-01-09 08:00] VITALS: BP 102/80
[2017-01-09] MEDS: MULTIVITAMINS,THERAPEUTIC TABLET PO SCH (08:37)
[2017-01-09] MEDS: GABAPENTIN 300 MG CAPSULE PO SCH ×3 (08:37→21:19)
[2017-01-09] MEDS: CLONIDINE HCL 0.1 MG TABLET PO SCH ×2 (08:37→21:20)
[2017-01-09] MEDS: DICYCLOMINE HCL 20 MG TABLET PO SCH ×3 (08:37→21:20)
[2017-01-09] MEDS: BACLOFEN 10 MG TABLET PO SCH ×3 (08:37→21:20)
[2017-01-09] MEDS: ACYCLOVIR 400 MG TABLET PO SCH ×2 (08:38→21:20)
[2017-01-09] MEDS: NITROFURANTOIN/NITROFURAN MAC 100 MG CAPSULE PO SCH ×2 (08:38→21:20)
[2017-01-09] MEDS: LACTOBACILLUS RHAMNOSUS GG 1 EACH CAPSULE PO SCH ×2 (08:38→21:20)
[2017-01-09 12:00] VITALS: BP 106/74
[2017-01-09 15:26] LABS: *AMPHETAMINE, URINE NEGATIVE (NEGATIVE); *BARBITURATE, URINE NEGATIVE (NEGATIVE); *CANNABINOID, URINE NEGATIVE (NEGATIVE); *COCCAINE, URINE NEGATIVE (NEGATIVE); *OPIATE, URINE NEGATIVE (NEGATIVE); *PHENCYCLIDINE SCREEN,URINE NEGATIVE (NEGATIVE)
[2017-01-09 16:00] VITALS: BP 109/68
--- NOTE | 2017-01-09 18:08 | NUR ---
End of shift note; Patient is AOX4. Patient is a 21 year old female admitted on 01/03/17 for Opiate and Benzo dependence/withdrawals. Patient was placed on a 5 day Subutex and 5 day Ativan taper, completed taper without any adverse reactions. Patient noted to be allergic to Sulfa, on full code, regular diet. Patient remained compliant with treatment plan. Medications were effective in reducing withdrawal symptoms. Met all needs.
--- NOTE | 2017-01-09 19:15 | NUR ---
START OF SHIFT NOTE : Pt is 21 y/o female here for Opiates, Benzo , methamphetamine , , Cocaine , pt. placed on 5 day Subutex and 5 day Ativan tapers on 01/04/2017. Pt is a full code, regular diet, allergic to Sulfa, fall and seizure precautions ordered. New Dx of UTi with 2 PO Atbx ordered. HHx: Hep C+, Anxiety, depression, anemia , HSV and seizure r/t w/d, relapse at 15 different tx centers. V/S stable. Skin is intact. No new abnormal labs endorsed to me. [facility] She will be D/C tomorrow. Pt remains compliant with the treatment plan. V/S remain WNL. RR=16, even and unlabored, lungs clear upon auscultation, abdomen soft and non- distended. Pt denies nausea, vomiting and diarrhea. Safety measures in place : bed on lowest position with side rails x2 up for safety, call light within reach. Will continue to monitor closely and offer help.
[2017-01-09 20:00] VITALS: BP 115/84
--- NOTE | 2017-01-10 06:35 | NUR ---
END OF SHIFT NOTE : Pt is 21 y/o female here for Opiates, Benzo , methamphetamine , , Cocaine , pt. placed on 5 day Subutex and 5 day Ativan tapers on 01/04/2017. Pt is a full code, regular diet, allergic to Sulfa, fall and seizure precautions ordered. New Dx of UTi with 2 PO Atbx ordered. HHx: Hep C+, Anxiety, depression, anemia , HSV and seizure r/t w/d, relapse at 15 different tx centers. V/S stable. Skin is intact. No new abnormal labs endorsed to me. Pt is smoking at the [facility] at this time. She will be D/C today. Pt remains compliant with the treatment plan. No PRNs were given during my shift. V/S remain WNL. RR=16, even and unlabored, lungs clear upon auscultation, abdomen soft and non- distended. Pt denies nausea, vomiting and diarrhea. LAST CIWA=1 ,COWS=1 at 0400 , INTAKE= 1796 ml, voided x 5, slept 7 hours. Safety measures in place : bed on lowest position with side rails x2 up for safety, call light within reach. Will continue to monitor closely and offer help.
--- NOTE | 2017-01-10 07:30 | NUR ---
start of shift note: received pt from caustic cresylate shift superintendent nurse, pt is in stable condition no s/s of pain, discomfort or any withdrawal symptoms. pts last cows 1 and ciwa 1. pt is set to discharge today will assist pt in discharging and will continue to monitor pt for any changes
[2017-01-10] MEDS: DICYCLOMINE HCL 20 MG TABLET PO SCH (09:01)
[2017-01-10 09:02] VITALS: BP 102/62
[2017-01-10] MEDS: ACYCLOVIR 400 MG TABLET PO SCH (09:02)
[2017-01-10] MEDS: BACLOFEN 10 MG TABLET PO SCH (09:02)
[2017-01-10] MEDS: MULTIVITAMINS,THERAPEUTIC TABLET PO SCH (09:02)
[2017-01-10] MEDS: CLONIDINE HCL 0.1 MG TABLET PO SCH (09:02)
[2017-01-10] MEDS: NITROFURANTOIN/NITROFURAN MAC 100 MG CAPSULE PO SCH (09:02)
[2017-01-10] MEDS: GABAPENTIN 300 MG CAPSULE PO SCH (09:02)
[2017-01-10] MEDS: LACTOBACILLUS RHAMNOSUS GG 1 EACH CAPSULE PO SCH (09:02)
--- NOTE | 2017-01-10 09:28 | NUR ---
discharge note: pt left the unit in stable condition no s/s of pain,discomfort,or any withdrawal symptoms. pt teaching was administered and pt verbalized understanding. pt's personal belongings were returned. pt will transferred to [facility] via private car
== END 2017-01-10 09:28 | disposition other institution (70) | DRG 895 ==
LOC: SRC 16:54
PROVIDERS: ADMIT Internal Medicine; ATTEND Internal Medicine
PROC: HZ2ZZZZ Detoxification Services for Substance Abuse Treatment (ICD-10-PCS; principal; 2017-01-03)
PROC: HZ31ZZZ Individual Counseling for Substance Abuse Treatment, Behavioral (ICD-10-PCS; 2017-01-05)
PROC: HZ41ZZZ Group Counseling for Substance Abuse Treatment, Behavioral (ICD-10-PCS; 2017-01-06)
DX: F11.23 Opioid dependence with withdrawal (principal); N30.00 Acute cystitis without hematuria; E87.1 Hypo-osmolality and hyponatremia; F13.230 Sedative, hypnotic or anxiolytic dependence with withdrawal, uncomplicated; G47.00 Insomnia, unspecified; G89.29 Other chronic pain; F17.210 Nicotine dependence, cigarettes, uncomplicated; F14.10 Cocaine abuse, uncomplicated; Z65.3 Problems related to other legal circumstances; Z59.0 Homelessness; F32.9 Major depressive disorder, single episode, unspecified; B95.2 Enterococcus as the cause of diseases classified elsewhere; B96.20 Unspecified Escherichia coli [E. coli] as the cause of diseases classified elsewhere; Z16.11 Resistance to penicillins; Z16.39 Resistance to other specified antimicrobial drug; E83.42 Hypomagnesemia; E86.1 Hypovolemia; E87.6 Hypokalemia; F41.9 Anxiety disorder, unspecified; A60.00 Herpesviral infection of urogenital system, unspecified; F15.23 Other stimulant dependence with withdrawal; M41.9 Scoliosis, unspecified; R73.9 Hyperglycemia, unspecified; Z81.1 Family history of alcohol abuse and dependence; Z82.49 Family history of ischemic heart disease and other diseases of the circulatory system
CPT/HCPCS: 36415; 70030-TC; 80307; 80324; 80346; 80353; 80361; 83735; 84703; 85025; 86580; 86592; 86705; 86803; 87077; 87086; 87340; 87806; A4663; G0480

== ENCOUNTER 2017-03-29 18:57 | Inpatient (IN) | payer BC, OTHER ==
[~2017-03-29] VITALS: Ht 157.5 cm; Wt 61.2 kg
[~2017-03-29 18:57] MED LIST changes: -ARIP15TA3 PO; +BACL10TA PO; -BUPR-96 PO; +CLON0.1T14 PO; +GABA-534 PO; -Gabapentin PO; +IBUP-1955 PO
[2017-03-29] MEDS ORDERED: CLONIDINE HCL 0.1 MG TABLET PO PRN (23:15)
[2017-03-29] MEDS ORDERED: IBUPROFEN 600 MG TABLET PO PRN (23:15)
[2017-03-29] MEDS ORDERED: LORAZEPAM 1 MG TABLET PO PRN ×2 (23:15)
[2017-03-29] MEDS ORDERED: MIRALAX 17 GM POWD.PACK PO PRN (23:15)
[2017-03-29] MEDS ORDERED: LOPERAMIDE HCL 2 MG CAPSULE PO PRN ×2 (23:15)
[2017-03-29] MEDS ORDERED: DICYCLOMINE HCL 20 MG TABLET PO PRN (23:15)
[2017-03-29] MEDS ORDERED: ACETAMINOPHEN 325 MG TABLET PO PRN (23:15)
[2017-03-29] MEDS ORDERED: LORAZEPAM 2 MG/1 ML VIAL IM PRN (23:15)
[2017-03-29] MEDS ORDERED: MAG HYDROX/AL HYDROX/SIMETH 30 ML LIQUID UDC PO PRN (23:15)
[2017-03-29] MEDS ORDERED: BUPRENORPHINE HCL 2 MG TAB.SUBL SL PRN (23:15)
[2017-03-29] MEDS ORDERED: diphenhydrAMINE 50 MG CAPSULE PO PRN (23:15)
--- NOTE | 2017-03-29 23:25 | NUR ---
PRE ADMISSION NOTE Pt is a 21 y/o female, seen at intake, AAOx4, no SOB with mild anxiety noted at this time. Pt is mildly intoxicated, no withdrawal symptoms noted. Discussed with patient the admission policies of the unit. Patient is coherent and able to respond to questions appropriately. Pt is ambulatory with steady gait. Vital signs taken and as follows: BP: 130/88, P: 91, R: 16, O2: 100%, T: 96.1, PA: 0. Pt verbalized understanding of instructions and teachings regarding unit protocols such as taking of vital signs Q4H and handling and disposal of contraband. Will continue with admission upon pts arrival on the unit.
--- NOTE | 2017-03-29 23:37 | NUR ---
ADMISSION NOTE Pt is a 21 y/o female admitted on 03/29/17 for benzo, opiate, meth, and cocaine dependence, arrived on the unit at 2337. Pt is allergic to sulfa meds. Pt was able to provide UDS. Pt is mildly intoxicated, no withdrawal symptoms noted. Upon admission COW 2, CIWA 1, BP: 130/88, P: 91, R: 16, O2: 100%, T: 96.1, PA: 0. Weight 135, height 5'2. Pt reports she does not have a PCP, is currently homeless, smokes 2.5 packs daily, denies being hospitalized within past 30 days. Pt is able to understand and respond to all questions pertaining to his hospitalization. Substance Abuse History is as follows: 1) Heroin IV 1.5-2 grams daily, last intake of 0.5 gram around 2030 on 03/29/17, at this rate for 1 month 2) Meth IV 0.5 gram daily, last intake of "less than 0.5 gram in the afternoon" on 03/29/17, at this rate for 1 month. 3) Xanax PO 4-8 mg "3-4 days a week", last intake of 4 mg on 03/26/17, at this rate for 1 month. 4) Cocaine nasal inhalation "once a month," last intake of "less than 0.5 gram" on 03/26/17, at this rate for "a few months." Pts longest sober period was for 1 month, a year ago. Treatment history: Pt reports approximately 15 + treatment histories, only can recall last detox, "[facility]" approximately 6 months ago. Pt reports her father is an alcoholic. PMH: Anxiety, depression, hepatitis C, UTI hx (has current UTI symptoms-urinary frequency and foul odor), pneumonia x 2, herpes (2013), scoliosis surgery (2006). Pt reports hx of seizure from benzo withdrawal "a few years ago." Pt denies any home medications. Upon assessment, pt is AAOx4, pt is mildly intoxicated and presents with mild anxiety. Respirations even and unlabored. Denies SOB, chest pain, N/V/D. Bowel sounds active x 4, abdomen soft. PERRLA. 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 No open wounds present. Pt denies SI/HI. Educational information provided and left at bedside. Pt oriented to room and encouraged to notify staff with any concerns. Safety measures in place. Call light within reach, side rails up x 2 with pads, bed locked and in low position. Will continue to monitor.
[2017-03-30] VITALS (7 sets, daily range): BP systolic 107–145; BP diastolic 50–111
[2017-03-30 00:06] LABS: *URINE HCG, QUAL NEGATIVE (NEGATIVE)
[2017-03-30 00:17] LABS: *AMPHETAMINE, URINE POSITIVE (NEGATIVE); *BARBITURATE, URINE NEGATIVE (NEGATIVE); *CANNABINOID, URINE NEGATIVE (NEGATIVE); *COCCAINE, URINE NEGATIVE (NEGATIVE); *OPIATE, URINE POSITIVE (NEGATIVE); *PHENCYCLIDINE SCREEN,URINE NEGATIVE (NEGATIVE)
[2017-03-30] MEDS ORDERED: CLOT12CR TP (02:34)
--- NOTE | 2017-03-30 04:00 | NUR ---
COW/CIWA DEFERRED Pt is laying in bed with eyes closed. COW/CIWA deferred, to be assessed when pt is fully awake per order. Respirations 14, even and unlabored. Safety measures in place. Call light within reach. Will continue to monitor.
[2017-03-30 06:33] LABS: BASOPHILS % (AUTO) 0.6 % (0.0-2.0); EOSINOPHILS # (AUTO) 0.2 K/uL (0.0-0.7); EOSINOPHILS % (AUTO) 3.4 % (0.0-7.0); HEMOGLOBIN 12.4 G/DL (12.0-16.0); LYMPHOCYTES % (AUTO) 42.4 % (20.5-51.5); MEAN CORPUSCULAR HEMOGLOBIN 26.7 UUG (27.0-31.0); MEAN CORPUSCULAR HGB CONC 33 g/dL (32.0-37.0); MEAN CORPUSCULAR VOLUME 81.6 FL (81.0-99.0); MONOCYTES # (AUTO) 0.9 K/UL (0.1-1.30); MONOCYTES % (AUTO) 12.8 % (0.0-11.0); NEUTROPHILS # (AUTO) 2.9 K/UL (1.8-8.9); NEUTROPHILS % (AUTO) 40.8 % (38.5-71.5); PLATELET COUNT (AUTO) 286 K/UL (150-450); RED BLOOD CELL COUNT(AUTO) 4.65 MIL/UL (4.2-5.4)
[2017-03-30 06:38] LABS: ALANINE AMINOTRANSFERASE 186 U/L (14-59); ALKALINE PHOSPHATASE 51 U/L (50-136); ASPARTATE AMINOTRANSFERASE 58 U/L (15-37); BILIRUBIN,TOTAL 0.6 mg/dL (0.2-1.0); CARBON DIOXIDE 26 mmol/L (21-32); CHLORIDE 104 mmol/L (98-107); CREATININE 0.8 mg/dL (0.6-1.3); GLUCOSE 84 mg/dL (74-106); MAGNESIUM 1.6 mg/dL (1.8-2.4); POTASSIUM 3.6 mmol/L (3.5-5.1); TOTAL PROTEIN, SERUM 6.9 g/dL (6.4-8.2); UREA NITROGEN, BLOOD 10 mg/dL (7-18)
[2017-03-30 06:57] LABS: ETHANOL < 3 MG/DL (0-0)
--- NOTE | 2017-03-30 07:19 | NUR ---
END OF SHIFT Pt is a 21 y/o female admitted on 03/29/17 for opiate, benzo, and meth dependence. Pt is full code, regular diet, allergic to sulfa meds, and fall/seizure precautions. Pt reports seizure history a few years ago from benzo withdrawal. Pt reports PMH of anxiety, depression, and hepatitis C. No ordered taper at this time. Pt came in mildly intoxicated with mild anxiety, no withdrawal S/S noted. Last COW 2 CIWA 1. No Scheduled medications or PRNs administered. Pt slept 6 hours. Intake 737 ml, voids x 1, stool x 0. Last vitals: BP 119/76, HR 84, R 14, 02 99%, T 98.1, PA 0. Safety measures in place. Call light within reach. Pts needs have been met. Endorsed to day shift nurse.
--- NOTE | 2017-03-30 07:30 | NUR ---
START OF SHIFT Pt 21 y/o female admitted for benzo, opiate, meth dependence. Pt received in room on bed with eyes closed resting, but easily arousable to name. Pt alert and oriented to name, place, and time. Perrla. Skin warm and slightly moist to touch. Respirations even and unlabored. It was reported that pt slept for 6 hours last night. Bed on lowest position with side rails x2 up for safety. Call light within reach. No distress noted at this time.
[2017-03-30] MEDS: BUPRENORPHINE HCL 2 MG TAB.SUBL SL SCH ×4 (09:00→21:11)
[2017-03-30] MEDS ORDERED: TUBERCULIN,PURIF.PROT.DERIV. 5 TU/0.1 ML TEST ID ONE (09:00)
[2017-03-30] MEDS ORDERED: GABAPENTIN 300 MG CAPSULE PO SCH (09:00)
[2017-03-30] MEDS: LORAZEPAM 1 MG TABLET PO SCH ×4 (09:39→21:09)
--- NOTE | 2017-03-30 09:51 | NUR ---
SUBUTEX cows=5. Pt states," I'm not ready to take the subutex yet."
--- NOTE | 2017-03-30 10:00 | NUR ---
Activity Group Note: Attempt made for group participation. Client refused. Will attempt when time permits.
[2017-03-30] MEDS ORDERED: MAGNESIUM OXIDE 400 MG TABLET PO ONE (13:00)
--- NOTE | 2017-03-30 13:45 | NUR ---
Activity Group Note: Attempt made for group participation. Client refused. Will attempt again when time permits.
[2017-03-30] MEDS: METHOCARBAMOL 750 MG TABLET PO PRN ×2 (13:46→21:08)
--- NOTE | 2017-03-30 13:49 | NUR ---
PRN Pt states has generalized body aches 6/10. Robaxin po prn per MD order given and tolerated well.
--- NOTE | 2017-03-30 13:51 | NUR ---
SUBUTEX Pt with cows=4. Pt states," I'm not ready to take the subutex yet."
--- NOTE | 2017-03-30 17:15 | NUR ---
PRN Pt states has stomach cramp. Bentyl po prn per MD order given and tolerated well.
--- NOTE | 2017-03-30 18:15 | NUR ---
PRN ANKIT Pt stated does not have stomach cramps at this time.
--- NOTE | 2017-03-30 18:35 | NUR ---
END OF SHIFT Pt 21 y/o female admitted for benzo, opiate, and methamphetamine dependence. Pt alert and oriented to name, place, and time. Perrla. Skin warm and moist to touch. Respiration even and unlabored. Pt selective with group activity. Pt was seen by MD today. Pt medication compliant and tolerated well. No ASE noted. Bed on lowest position with side rails x2 up for safety. Call light within reach. No distress noted at this time.
[2017-03-30] MEDS ORDERED: TRAZODONE 100 MG TABLET PO PRN (18:45)
--- NOTE | 2017-03-30 19:30 | NUR ---
START OF SHIFT Pt is a 21 y/o female admitted on 03/29/17 for benzo, opiate, and meth dependence. Pt is full code, allergic to sulfa meds, regular diet, and fall/seizure precautions. Pt reports PMH of anxiety, depression, hepatitis C. Pt is on a 5 day Subutex and 5 day Ativan taper started today, tolerating well. Upon assessment pt is sitting in bed and presents with anxiety, restlessness, body aches (6/10), sweats, chills, stomach cramps, nausea, and constipation. Pt reports that she had one episode of vomiting during day shift. Respirations 16, even and unlabored. Denies chest pain or SOB. Medications due. Safety measures in place. Call light within reach. Will continue to monitor.
[2017-03-30] MEDS: ONDANSETRON ODT 4 MG TAB.RAPDIS SL PRN (19:59)
--- NOTE | 2017-03-30 20:00 | NUR ---
PRN ZOFRAN 4 MG ADMINISTRATION Pt reports nausea. Reports vomiting x 1 during day shift. Safety measures in place. Call light within reach. Will continue to monitor.
--- NOTE | 2017-03-30 20:30 | NUR ---
PRN VICKY REASSESSMENT Pt reports slight improvement in nausea, but still present. Will continue to monitor. Safety measures in place. Call light within reach.
[2017-03-30] MEDS: ONDANSETRON 4 MG/2 ML VIAL IM PRN (21:08)
[2017-03-30] MEDS: GABAPENTIN 300 MG CAPSULE PO SCH (21:08)
--- NOTE | 2017-03-30 21:08 | NUR ---
STEPHON ZOFRAN INJ, ROBAXIN, AND MIRALAX ADMINISTRATION Pt has one episode of vomiting. Reports body aches 11/20 and constipation r/t withdrawal. Last BM "a few days ago." Safety measures in place. Call light within reach. Will continue to monitor. Addendum: 03/31/17 at 0013 by EDUARDO REDMAN RN MIRALAX NOT ADMINISTERED
--- NOTE | 2017-03-30 21:38 | NUR ---
ZOFRAN INJ REASSESSMENT Pt reports improvement in nausea. No other episodes of vomiting. Safety measures in place. Call light within reach. Will continue to monitor.
--- NOTE | 2017-03-30 22:08 | NUR ---
PRN ROBAXIN ADMINISTRATION Pt reports improvement in body aches to tolerable level, but still present. Safety measures in place. Call light within reach. Will continue to monitor. Addendum: 03/31/17 at 0022 by EDUARDO REDMAN RN REASSESSMENT NOT ADMINISTRATION OF ROBAXIN
--- NOTE | 2017-03-31 | NUR ---
CIWA/COW DEFERRED AND REFUSED VITALS Pt is laying in bed with eyes closed. Respirations 16, even and unlabored. Pt refused vitals. COW/CIWA deferred, to be assessed when pt is fully awake. Safety measures in place. Call light within reach. Will continue to monitor.
--- NOTE | 2017-03-31 07:36 | NUR ---
END OF SHIFT Pt is a 21 y/o female admitted on 03/29/17 for benzo, opiate, and meth dependence. Pt is full code, allergic to sulfa meds, regular diet, and fall/seizure precautions. Pt reports PMH of anxiety, depression, hepatitis C. Pt is on a 5 day Subutex and 5 day Ativan taper started today, tolerating well. Pt presented with anxiety, restlessness, body aches (6/10), sweats, chills, stomach cramps and nausea. Pt vomited x 1 during shift. Scheduled medications and PRN Zofran x 2 (PO and inj) and Robaxin administered, effective in S/S of withdrawal as verbalized by pt. Last COW 8 and CIWA 10. Pt slept 5.5 hours. Intake 1849 ml, void x 2, stool x 1. Safety measures in place. Call light within reach. Pts needs have been met. Endorsed to day shift nurse.
--- NOTE | 2017-03-31 07:40 | NUR ---
START OF SHIFT Received report from night nurse. 21 year old female patient admitted on 03/29/17 for opiate/benzo/meth/cocaine withdrawals. Pt was started on a 5 day Ativan and 5 day Subutex taper and is tolerating well. V/S remains WNL. Pt most recent COWS are 8 and CIWA is 10 at 2000. PRN Zofran x2, and Robaxin administered and effective. Pt states she has trouble sleeping and refuses Trazodone because it makes her restless. Pt also complains of symptoms of UTI such as pain and frequency, will notify MD. All needs met at this time, will continue to monitor.
[2017-03-31 08:10] LABS: HEPATITIS B SURFACE AG Negative (Negative)
[2017-03-31 08:56] VITALS: BP 112/79
[2017-03-31] MEDS: METHOCARBAMOL 750 MG TABLET PO PRN ×2 (09:01→21:32)
[2017-03-31] MEDS: GABAPENTIN 300 MG CAPSULE PO SCH ×2 (09:01→21:33)
[2017-03-31] MEDS: BUPRENORPHINE HCL 2 MG TAB.SUBL SL SCH ×3 (09:02→21:32)
[2017-03-31] MEDS: LORAZEPAM 1 MG TABLET PO SCH ×3 (09:02→21:33)
--- NOTE | 2017-03-31 09:03 | NUR ---
PRN ROBAXIN Pt c.o 5/10 generalized body aches related to withdrawal. PRN Robaxin 750mg PO administered as ordered. Will reassess.
--- NOTE | 2017-03-31 10:03 | NUR ---
REASSESSMENT Pt denies pain at this time, medication was effective.
[2017-03-31 10:28] LABS: *BILIRUBIN,URIN NEGATIVE (NEGATIVE); *BLOOD, URINE 1+ (NEGATIVE); *CLARITY,URINE CLOUDY (CLEAR); *COLOR,URINE YELLOW (YELLOW); *KETONES,URINE TRACE (NEGATIVE); *PROTEIN,URINE 1+ (NEGATIVE); LEUKOCYTE ESTERASE ,URINE 2+ (NEGATIVE); NITRITE, URINE POSITIVE (NEGATIVE); PH,URINE 8.5 (5.0-8.0); UGLUCOSE NEGATIVE (NEGATIVE)
[2017-03-31 10:30] LABS: BACTERIA,URINE MANY /HPF (NONE SEEN); SQUAMOUS EPITHELIAL CELL,UR MODERATE /HPF (NONE SEEN); TRANSITIONAL EPI CELLS,URINE FEW /LPF (NONE SEEN); WBC,URINE TNTC /HPF (0-3)
[2017-03-31 12:13] VITALS: BP 116/79
--- NOTE | 2017-03-31 14:13 | NUR ---
THerapist prompted client to attend groups. Client shall consider it.
--- NOTE | 2017-03-31 16:30 | NUR ---
Therapist prompted client about group times. Client stated she will start attending tomorrow.
[2017-03-31] MEDS ORDERED: KETOROLAC TROMETHAMINE 30 MG INJ IM PRN (16:45)
[2017-03-31 17:30] VITALS: BP 114/75
[2017-03-31] MEDS ORDERED: LORAZEPAM 1 MG TABLET PO ONE (18:45)
[2017-03-31] MEDS ORDERED: LORAZEPAM 1 MG TABLET PO PRN ×2 (18:45)
--- NOTE | 2017-03-31 18:51 | NUR ---
ONE TIME ATIVAN ORDER Ativan 2mg administered as ordered per Dr. Carrasquillo. Pt CIWA is 7, pt appears restless, tremors, anxiety and agitation noted. Pt also has increased heart rate 104. Night nurse to reassess effectiveness.
--- NOTE | 2017-03-31 19:14 | NUR ---
END OF SHIFT Endorsed to night nurse. 21 year old female admitted on 03/30/17 for opiate/benzo withdrawals. Pt remains A/O x4. Pt continues on 5 day Subutex and 5 day Ativan taper today and is tolerating well. Pt denies having a BM on day shift. Ambulates with steady gait, adequate caloric intake. Patient UA/UC is positive for UTI, pt to start on Macrobid and Pyridium, education provided. Most recent CIWA is 7 and COWS 7. One time dose of Ativan 2mg administered, night nurse to reassess. Per psychiatrist, new order for Seroquel 150mg available as needed. All needs met at this time. V/S remain WNL. Pt encouraged ro attend groups and activities, pt is seen socializing with peers. Pt verbalizes feelings. Safety measures in place, night nurse to continue monitoring.
[2017-03-31 20:00] VITALS: BP 126/74
[2017-03-31] MEDS: PHENAZOPYRIDINE HCL 100 MG TABLET PO SCH (21:32)
[2017-03-31] MEDS: LACTOBACILLUS RHAMNOSUS GG 1 EACH CAPSULE PO SCH (21:32)
[2017-03-31] MEDS: NITROFURANTOIN/NITROFURAN MAC 100 MG CAPSULE PO SCH (21:32)
[2017-03-31] MEDS: BACLOFEN 10 MG TABLET PO SCH (21:33)
[2017-03-31] MEDS: QUETIAPINE FUMARATE 100 MG TABLET PO PRN (23:39)
[2017-03-31] MEDS: ONDANSETRON ODT 4 MG TAB.RAPDIS SL PRN (23:54)
[2017-04-01] MEDS: NITROFURANTOIN/NITROFURAN MAC 100 MG CAPSULE PO SCH ×2 (09:00→20:31)
[2017-04-01] MEDS: GABAPENTIN 300 MG CAPSULE PO SCH ×3 (09:00→20:31)
[2017-04-01] MEDS: LACTOBACILLUS RHAMNOSUS GG 1 EACH CAPSULE PO SCH ×2 (09:00→20:30)
[2017-04-01] MEDS: BACLOFEN 10 MG TABLET PO SCH ×3 (09:00→20:31)
[2017-04-01] MEDS: LORAZEPAM 1 MG TABLET PO SCH ×3 (09:00→20:30)
[2017-04-01] MEDS ORDERED: BUPRENORPHINE HCL 2 MG TAB.SUBL SL SCH ×2 (09:00→15:00)
[2017-04-01] MEDS: PHENAZOPYRIDINE HCL 100 MG TABLET PO SCH ×3 (09:00→20:31)
--- NOTE | 2017-04-01 11:44 | NUR ---
0900 MEDICATION ADMINISTRATION all scheduled 0900 medications were administered as ordered, per [facility] downtime. refer to paper MAR record.
[2017-04-01 12:45] VITALS: BP 130/85
[2017-04-01] MEDS: BUPRENORPHINE HCL 2 MG TAB.SUBL SL SCH ×3 (12:54→20:32)
--- NOTE | 2017-04-01 13:29 | NUR ---
Therapist prompted client to attend group, Client agreed to come to group
[2017-04-01 17:00] VITALS: BP 126/81
--- NOTE | 2017-04-01 19:12 | NUR ---
END OF SHIFT Patient alert and oriented x4, vital signs were stable during shift. Patient compliant with therapeutic plan of care. Patients continues under close observation. patient with admitting Dx: opiate/bzo dependence. currently with ongoing taper of Ativan/ Subutex 5 day taper, well tolerated, no ASE noted, continues under close observation. 0900 assessment patient presented with: mild nausea with no vomiting, tremors that can be felt but not seen, anxiety, mild agitation, barely sweating, mild head fullness, heart rate of 100, c/o chills, dilated pupils, nasal stuffiness, yawning and goosebump with cow score of :15 and ciwa score of: 9; 1300 assessment patient presented with: heart rate of 108, c/o chills, difficulty sitting still, mild bone and joint chest, moist eyes, stomach cramps, tremors that can be felt but not seen, irritable, anxiety, goosebump, and barely sweating with cow score of: 13 and ciwa score of: 7; 1700 assessment patient presented with: heart rate of 86, c/o chills, mild bone and joint chest, moist eyes, tremors that can be felt but not seen, yawning, anxiety and barely sweating with cow score of: 9 and ciwa score of: 6. Patient encouraged adequate PO fluid intake as tolerated. received no PRN medications during shift. Patient encouraged to attend group therapies/sessions to learn new coping skills to prevent relapse, noted attending and participating. Denies SI/HI. safety measures in place. call light kept with in reach, patient endorsed to shift foreman nurse, all pertinent information discussed. will continue to monitor.
[2017-04-01 20:00] VITALS: BP 124/87
--- NOTE | 2017-04-01 20:00 | NUR ---
START OF SHIFT Received report from day shift nurse. Pt attended a group meeting and returned to her room after. She is a 21 yo female admitted to [facility] on 03/29 for BZD and opiate dependence. She is A&O x4 and ambulatory. Allergic to sulfa, full code status, and on a regular diet. She has a PMH of Hepatitis C, scoliosis surgery 2006, PNA x2, anxiety, and depression. On admission she reported using Xanax 4-8mg per day, heroin 1.5-2 grams per day, methamphetamine 0.5 grams per day and cocaine 0.5 grams once monthly. Pt started a 5 day Ativan and 5 day Subutex taper on 03/30. Pt reports nausea and low back ache. Tapers due tonight. Fall and seizure precautions in place. Bed is down with call light in reach.
[2017-04-01] MEDS: ONDANSETRON 4 MG/2 ML VIAL IM PRN (20:28)
--- NOTE | 2017-04-01 20:29 | NUR ---
PRN Zofran Pt reports nausea and feeling the need to vomit. No active vomiting at this time. PRN Zofran IM administered.
[2017-04-01] MEDS: QUETIAPINE FUMARATE 100 MG TABLET PO PRN (20:32)
--- NOTE | 2017-04-01 20:59 | NUR ---
PRN Zofran reassessment PRN Zofran effective. Pt reports nausea is relieved
[2017-04-02] VITALS: BP 103/55
--- NOTE | 2017-04-02 | NUR ---
0000 COWS and CIWA deferred COWS and CIWA ordered Q4HWA. Pt is lying in bed resting with eyes closed. Respirations even and unlabored. Vital signs obtained. Safety measures in place.
--- NOTE | 2017-04-02 04:00 | NUR ---
0400 Vitals refused/COWS and CIWA deferred Pt refused to be woken for 0400 vitals. She is lying in bed resting with eyes closed. Respirations even and unlabored. COWS and CIWA ordered Q4HWA. Safety measures in place.
--- NOTE | 2017-04-02 07:25 | NUR ---
END OF SHIFT Report provided to day shift nurse. Pt is lying in bed resting. She is a 21 yo female admitted to [facility] on 03/29 for BZD and opiate dependence. She is A&O and ambulatory. Allergic to sulfa, full code status, and on a regular diet. PMH of Hepatitis C, scoliosis surgery 2006, PNA x2, anxiety, and depression. Upon admission she reported using Xanax 4-8mg per day, heroin 1.5-2 grams per day, methamphetamine 0.5 grams per day and cocaine 0.5 grams once monthly. 5 day ativan and 5 day subutex tapers started on 03/30. She is being treated for a UTI. Pt reports symptoms are improving. PRN Zofran administered. Last COWS 8 and CIWA 5 before 2100 medications. She slept for 7 hours. Fall and seizure precautions in place. Bed is down with call light in reach.
--- NOTE | 2017-04-02 07:30 | NUR ---
START OF SHIFT Pt is a 21 yr old female, AA&Ox4. Pt was admitted on 03/29/17 for Opiate/Benzo Dependence and is on 5 day Ativan and 5 day Subutex. Medication edmond well. Received report from production shift supervisor nurse. Pt received Zofran PRN during the night for nausea. Medication was effective. Pt slept for 7 hr. Last COWS score was 8 and CIWA score was 5 at 1999. Pt is currently in bed resting with respirations even and unlabored. Pt denies any n/v. Skin is intact, warm and dry to touch. No tremors seen or felt. Safety precautions observed. Bed kept in low position and locked with side rails up x2. Call light is within reach. Will continue to monitor.
[2017-04-02 08:00] VITALS: BP 112/64
[2017-04-02] MEDS: NITROFURANTOIN/NITROFURAN MAC 100 MG CAPSULE PO SCH ×2 (09:29→21:44)
[2017-04-02] MEDS: LACTOBACILLUS RHAMNOSUS GG 1 EACH CAPSULE PO SCH ×2 (09:29→21:43)
[2017-04-02] MEDS: BUPRENORPHINE HCL 2 MG TAB.SUBL SL SCH ×3 (09:29→21:48)
[2017-04-02] MEDS: BACLOFEN 20 MG TABLET PO SCH ×3 (09:29→21:44)
[2017-04-02] MEDS: LORAZEPAM 1 MG TABLET PO SCH ×2 (09:29→21:43)
[2017-04-02] MEDS: PHENAZOPYRIDINE HCL 100 MG TABLET PO SCH ×2 (09:29→14:30)
[2017-04-02] MEDS: GABAPENTIN 300 MG CAPSULE PO SCH ×3 (09:29→21:44)
[2017-04-02 12:00] VITALS: BP 121/81
[2017-04-02 16:00] VITALS: BP 128/85
--- NOTE | 2017-04-02 19:20 | NUR ---
END OF SHIFT Pt is a 21 yr old female, AA&Ox4. Pt was admitted on 03/29/17 for Opiate/Benzo Dependence and is on 5 day Ativan and 5 day Subutex. Medication edmond well. Pt has been cooperative with medication regimen. Pt refused to attended group sessions. No PRN were given.Last COWS score was 3, CIWA score was 1 at 1600. Pt denies any anxiety at this time. Pt denies any n/v. Skin is intact, warm and dry to touch. No tremors seen or felt. Safety precautions observed. Bed kept in low position and locked with side rails up x2. Call light is within reach.
[2017-04-02 20:00] VITALS: BP 137/86
--- NOTE | 2017-04-02 20:05 | NUR ---
START OF SHIFT Received report from day shift nurse. Pt attended a group meeting and returned to her room after. She is a 21 yo female admitted to [facility] on 03/29 for BZD and opiate dependence. She is A&O x4 and ambulatory. Allergic to sulfa, full code status, and on a regular diet. She has a PMH of Hepatitis C, scoliosis surgery 2006, PNA x2, anxiety, and depression. Upon admission she reported that she had been using Xanax 4-8mg per day, heroin 1.5-2 grams per day, methamphetamine 0.5 grams per day and cocaine 0.5 grams once per month. Pt started a 5 day Ativan and 5 day Subutex taper on 03/30. She reports mild back pain. Tapers due tonight. Fall and seizure precautions in place. Bed is down with call light in reach.
[2017-04-02] MEDS: QUETIAPINE FUMARATE 100 MG TABLET PO PRN (21:45)
--- NOTE | 2017-04-02 21:46 | NUR ---
PRN Seroquel Pt reports inability to sleep. PRN Seroquel administered.
--- NOTE | 2017-04-02 22:46 | NUR ---
PRN Seroquel reassessment PRN Seroquel effective. Pt is lying in bed resting with eyes closed. Respirations even and unlabored. Safety measures in place.
[2017-04-03] VITALS: BP 126/68
--- NOTE | 2017-04-03 | NUR ---
0000 COWS and CIWA deferred COWS and CIWA ordered Q4HWA. Pt is lying in bed resting with eyes closed. Vital signs obtained. Safety measures in place.
--- NOTE | 2017-04-03 04:00 | NUR ---
0400 vitals refused/COWS and CIWA deferred Pt refused to be woken for 0400 vitals. She is lying in bed resting with eyes closed. Respirations even and unlabored. COWS and CIWA ordered Q4HWA. Safety measures in place.
--- NOTE | 2017-04-03 07:07 | NUR ---
END OF SHIFT Report provided to day shift nurse. Pt is lying in bed resting. She is a 21 yo female admitted to [facility] on 03/29 for BZD and opiate dependence. She is A&O and ambulatory. Allergic to sulfa, full code status, and on a regular diet. She has a PMH of Hepatitis C, scoliosis surgery 2006, PNA x2, anxiety, and depression. Upon admission she reported that she had been using Xanax 4-8mg per day, heroin 1.5-2 grams per day, methamphetamine 0.5 grams per day and cocaine 0.5 grams once per month. Pt started a 5 day Ativan and 5 day Subutex taper on 03/30. PRN Seroquel administered. Last COWS 5 and CIWA 4 before night medications. She drank 1100mL and slept for 8 hours. Fall and seizure precautions in place. Bed is down with call light in reach.
--- NOTE | 2017-04-03 07:30 | NUR ---
START OF SHIFT Pt is a 21 yr old female, AA&Ox4. Pt was admitted on 03/29/17 for Opiate/Benzo Dependence and is on 5 day Ativan and 5 day Subutex. Medication edmond well. Received report from assistant casino shift manager nurse. Pt received Seroquel PRN during the night for sleep. Medication was effective. Pt slept for 8 hr. Last COWS score was 5 and CIWA score was 4 at 1999. Pt is currently in bed resting with respirations even and unlabored. Pt denies any anxiety or agitation. Pt denies any n/v. Skin is intact, warm and dry to touch. No tremors seen or felt. Safety precautions observed. Bed kept in low position and locked with side rails up x2. Call light is within reach. Will continue to monitor.
[2017-04-03 08:00] VITALS: BP 120/72
[2017-04-03] MEDS ORDERED: BUPRENORPHINE HCL 2 MG TAB.SUBL SL SCH (09:00)
[2017-04-03] MEDS ORDERED: LORAZEPAM 1 MG TABLET PO SCH (09:00)
[2017-04-03] MEDS: GABAPENTIN 300 MG CAPSULE PO SCH ×3 (10:09→21:56)
[2017-04-03] MEDS: BACLOFEN 20 MG TABLET PO SCH ×3 (10:09→21:56)
[2017-04-03] MEDS: NITROFURANTOIN/NITROFURAN MAC 100 MG CAPSULE PO SCH ×2 (10:09→21:56)
[2017-04-03] MEDS: LACTOBACILLUS RHAMNOSUS GG 1 EACH CAPSULE PO SCH ×2 (10:09→21:56)
[2017-04-03 12:00] VITALS: BP 132/77
[2017-04-03 16:00] VITALS: BP 126/96
[2017-04-03] MEDS ORDERED: GABA-534 PO (16:53)
[2017-04-03] MEDS ORDERED: HYDR25CA PO (16:53)
[2017-04-03] MEDS ORDERED: IBUP-1955 PO (16:53)
[2017-04-03] MEDS ORDERED: QUET100T PO (16:53)
[2017-04-03] MEDS ORDERED: BACL20TA PO (16:53)
--- NOTE | 2017-04-03 19:08 | NUR ---
END OF SHIFT Pt is a 21 yr old female, AA&Ox4. Pt was admitted on 03/29/17 for Opiate/Benzo Dependence and has completed a 5 day Ativan and 5 day Subutex. Medication edmond well. Pt has been cooperative with medication regimen. pt attended groups. No PRN were given. Last COWS score was 2, CIWA score was 1 at 1600. Pt denies any anxiety at this time. Pt denies any n/v. Skin is intact, warm and dry to touch. No tremors seen or felt. Pt is to be discharged tomorrow to home. Safety precautions observed. Bed kept in low position and locked with side rails up x2. Call light is within reach.
[2017-04-03 20:00] VITALS: BP 145/93
--- NOTE | 2017-04-03 20:05 | NUR ---
START OF SHIFT Received report from day shift nurse. Pt attended a group meeting and returned to her room after. She is a 21 yo female admitted to [facility] on 03/29 for BZD and opiate dependence. She is A&O x4 and ambulatory. Allergic to sulfa, full code status, and on a regular diet. She has a PMH of Hepatitis C, scoliosis surgery 2006, PNA x2, anxiety, and depression. Upon admission she reported that she had been using Xanax 4-8mg per day, heroin 1.5-2 grams per day, methamphetamine 0.5 grams per day and cocaine 0.5 grams once per month. 5 day Ativan and 5 day Subutex taper completed today and she is scheduled for discharge tomorrow. She reports mild back pain. No other s/s of withdrawal noted. Fall and seizure precautions in place. Bed is down with call light in reach.
[2017-04-03] MEDS: QUETIAPINE FUMARATE 100 MG TABLET PO PRN (21:57)
--- NOTE | 2017-04-03 21:57 | NUR ---
PRN Clonidine Pt reports feeling mild anxiety. B/P 145/93 and HR 110. PRN Clonidine administered.
--- NOTE | 2017-04-03 21:58 | NUR ---
PRN Clonidine and Seroquel Pt reports feeling mild anxiety and inability to sleep. B/P 145/93 and HR 110. PRN Clonidine and Seroquel administered
[2017-04-03 22:58] VITALS: BP 128/76
--- NOTE | 2017-04-03 22:58 | NUR ---
PRN Clonidine and Seroquel reassessment PRN Seroquel and Clonidine effective. Pt is lying in bed resting with eyes closed. B/P 126/76 and HR 90.
[2017-04-04] VITALS: BP 127/79
--- NOTE | 2017-04-04 07:30 | NUR ---
START OF SHIFT NOTE: Pt is a 21 yr old female, AA&Ox4. Pt was admitted on 03/29/17 for Opiate/Benzo Dependence and completed a 5 day Ativan and 5 day Subutex tapers. To be discharged this AM. Pt is alert and oriented X 4. Color good, skin warm and dry. Respirations even and unlabored. Safety precautions observed. Call light within reach.
--- NOTE | 2017-04-04 07:30 | NUR ---
END OF SHIFT Report provided to day shift nurse. Pt is lying in bed resting. She is a 21 yo female admitted to [facility] on 03/29 for BZD and opiate dependence. She is A&O x4 and ambulatory. Allergic to sulfa, full code status, and on a regular diet. She has a PMH of Hepatitis C, scoliosis surgery 2006, PNA x2, anxiety, and depression. Upon admission she reported that she had been using Xanax 4-8mg per day, heroin 1.5-2 grams per day, methamphetamine 0.5 grams per day and cocaine 0.5 grams once per month. 5 day Ativan and 5 day Subutex taper completed today and she is scheduled for discharge today. PRN Clonidine and Seroquel administered. Last COWS 2 and CIWA 0. He drank 3050mL and slept for 7 hours. Fall and seizure precautions in place. Bed is down with call light in reach.
[2017-04-04] MEDS: NITROFURANTOIN/NITROFURAN MAC 100 MG CAPSULE PO SCH (08:25)
[2017-04-04] MEDS: BACLOFEN 20 MG TABLET PO SCH (08:25)
[2017-04-04] MEDS: GABAPENTIN 300 MG CAPSULE PO SCH (08:25)
[2017-04-04] MEDS: LACTOBACILLUS RHAMNOSUS GG 1 EACH CAPSULE PO SCH (08:25)
--- NOTE | 2017-04-04 08:30 | NUR ---
VSS. Discharge papers and medication bag signed.
--- NOTE | 2017-04-04 09:45 | NUR ---
Pt discharged in stable condition with all valuables, belongings and home medications. Pt to Home via private car
== END 2017-04-04 09:45 | disposition home or self-care (01) | DRG 895 ==
LOC: SRC 22:59
PROVIDERS: ADMIT Internal Medicine; ATTEND Internal Medicine
PROC: HZ2ZZZZ Detoxification Services for Substance Abuse Treatment (ICD-10-PCS; principal; 2017-03-29)
PROC: HZ31ZZZ Individual Counseling for Substance Abuse Treatment, Behavioral (ICD-10-PCS; 2017-04-01)
PROC: HZ41ZZZ Group Counseling for Substance Abuse Treatment, Behavioral (ICD-10-PCS; 2017-04-01)
DX: F11.23 Opioid dependence with withdrawal (principal); E83.42 Hypomagnesemia; N30.01 Acute cystitis with hematuria; F15.220 Other stimulant dependence with intoxication, uncomplicated; M41.9 Scoliosis, unspecified; F17.210 Nicotine dependence, cigarettes, uncomplicated; G89.29 Other chronic pain; G47.00 Insomnia, unspecified; Z91.89 Other specified personal risk factors, not elsewhere classified; F41.9 Anxiety disorder, unspecified; Z59.0 Homelessness; Z79.899 Other long term (current) drug therapy; Z82.49 Family history of ischemic heart disease and other diseases of the circulatory system; Z81.1 Family history of alcohol abuse and dependence; Z80.9 Family history of malignant neoplasm, unspecified; F14.10 Cocaine abuse, uncomplicated; A60.00 Herpesviral infection of urogenital system, unspecified; B19.20 Unspecified viral hepatitis C without hepatic coma; I10 Essential (primary) hypertension; F32.9 Major depressive disorder, single episode, unspecified; R74.0 Nonspecific elevation of levels of transaminase and lactic acid dehydrogenase [LDH]
CPT/HCPCS: 36415; 70030-TC; 80307; 80324; 80361; 83735; 84703; 85025; 86592; 86705; 86803; 87340; 87806; A4663; G0480; J2405; Q0162